=== PATIENT | female | born 1955 | race Caucasian/White ===

== ENCOUNTER 2019-02-14 15:36 | Emergency (ER) | payer SELFPAY ==
[~2019-02-14] VITALS: Ht 162.5 cm; Wt 48.1 kg
[~2019-02-14 15:36] MED LIST: AUGMENTIN 875-875 MG PO; BLEPH-10 15 ML15 ML OPH; CLOZAPINE25 MG PO; DIFLUCAN150 MG PO; EXCEDRIN IB200 MG PO; FLONASE ALLERG9.9 ML NAS; HYCODAN/HYDROMET5 ML PO; HYDROCODONE BIT1 T11 PO; IBU800 MG PO; KEFLEX500 MG PO; PREDNISONE50 MG PO; ZITHROMAX Z PA250 MG PO; ZYRTEC10 MG PO; indocin PO
[2019-02-14 17:12] LABS: BILIRUBIN NEGATIVE (NEGATIVE); BLOOD 1+ (NEGATIVE); CLARITY CLEAR (CLEAR); COLOR YELLOW (YELLOW); GLUCOSE NEGATIVE (NEGATIVE); KETONE NEGATIVE (NEGATIVE); LEUKO ESTERASE NEGATIVE (NEGATIVE); NITRITE NEGATIVE (NEGATIVE); PH 7.5 (5.0-9.0); UROBILINOGEN 0.2 E.U./dl (0.2-1.0)
[2019-02-14 17:33] LABS: EPITHELIAL CELLS 0-2
[2019-02-14 18:43] LABS: BASO # 0.1 10*3/uL (0.0-0.1); EOS # 0.2 10*3/uL (0.0-0.4); EOS % 1.8 % (1.0-4.0); HEMATOCRIT 41.4 % (37.0-47.0); HEMOGLOBIN 13.9 g/dl (12.0-16.0); LYMPH # 2.8 10*3/uL (1.3-4.4); LYMPH % 33.6 % (27.0-41.0); MEAN CORPUSCULAR HGB 33.3 pg (27.0-31.0); MEAN CORPUSCULAR HGB CONC 33.6 g/dl (33.0-37.0); MEAN PLATELET VOLUME 9.7 fl (9.6-12.3); MONO # 0.4 10*3/uL (0.1-1.0); NEUT # 4.9 10*3/uL (2.3-7.9); NEUT % 58.4 % (47.0-73.0); PLATELET COUNT AUTOMATED 290 10*3/uL (130-400); RED BLOOD COUNT 4.18 10*6/uL (4.10-5.10); RED CELL DISTRI WIDTH 12.1 % (0-14.5); WHITE BLOOD COUNT 8.4 10*3/uL (4.8-10.8)
[2019-02-14 19:00] LABS: ALBUMIN 4.1 gm/dl (3.1-4.5); ALKALINE PHOSPHATASE 79 U/L (45-117); BUN 9 mg/dl (7-24); CHLORIDE 104 mmol/L (98-107); CREATININE 0.71 mg/dL (0.55-1.02); POTASSIUM 3.8 mmol/L (3.5-5.1); SGOT/AST 30 IU/L (3-35); SGPT/ALT 52 U/L (12-78); SODIUM 139 mmol/L (136-145); TOTAL PROTEIN 7.2 gm/dL (6.4-8.2)
== END 2019-02-14 19:28 | disposition home or self-care (01) ==
LOC: ED 15:36
PROVIDERS: Physician Assistant
DX: R07.81 Pleurodynia (principal); R10.814 Left lower quadrant abdominal tenderness; R10.813 Right lower quadrant abdominal tenderness; Z91.018 Allergy to other foods

== ENCOUNTER 2023-08-26 15:01 | Emergency (ER) | payer OTHER ==
[~2023-08-26] VITALS: Ht 162.5 cm; Wt 47.2 kg
[2023-08-26] MEDS ORDERED: Metoclopramide Hydrochloride 10 MG/2 ML AMP IV ONE (15:45)
[2023-08-26] MEDS ORDERED: diphenhydrAMINE hydrochloride 50 MG/ML VIAL IV ONE (15:45)
[2023-08-26] MEDS ORDERED: SODIUM CHLORIDE 0.9% 1,000 ML IV ONE (15:45)
[2023-08-26] MEDS ORDERED: Ketorolac Tromethamine 30 MG/ML VIAL IV ONE (15:45)
[2023-08-26 16:15] LABS: BASO % 0.4 % (0.0-1.0); EOS # 0.1 10*3/uL (0.0-0.4); EOS % 0.7 % (1.0-4.0); HEMATOCRIT 36.8 % (37.0-47.0); LYMPH # 1.3 10*3/uL (1.3-4.4); LYMPH % 19.6 % (27.0-41.0); MEAN CELL VOLUME 96.6 fl (81.0-99.0); MEAN CORPUSCULAR HGB 34.4 pg (27.0-31.0); MEAN CORPUSCULAR HGB CONC 35.6 g/dl (33.0-37.0); MEAN PLATELET VOLUME 9.7 fl (9.6-12.3); MONO # 0.3 10*3/uL (0.1-1.0); MONO % 5.1 % (3.0-9.0); NEUT # 4.9 10*3/uL (2.3-7.9); NEUT % 73.9 % (47.0-73.0); PLATELET COUNT AUTOMATED 253 10*3/uL (130-400); RED BLOOD COUNT 3.81 10*6/uL (4.10-5.10); WHITE BLOOD COUNT 6.7 10*3/uL (4.8-10.8)
[2023-08-26 16:16] LABS: BILIRUBIN Negative (Negative); BLOOD 2+ (Negative); CLARITY Clear (Clear); COLOR Yellow (Yellow); GLUCOSE Negative (Negative); KETONE Negative (Negative); LEUKO ESTERASE Negative (Negative); NITRITE Negative (Negative); PH 6.5 (4.5-8.0); UROBILINOGEN 0.2 E.U./dl (0.0-1.0)
[2023-08-26 16:28] LABS: ALKALINE PHOSPHATASE 121 U/L (46-116); BUN 12 mg/dl (9-23); CHLORIDE 102 mmol/L (98-107); POTASSIUM 3.6 mmol/L (3.4-5.1); SGPT/ALT 27 U/L (5-49); TOTAL PROTEIN 6.6 gm/dL (6.0-8.0)
[2023-08-26 16:33] LABS: EPITHELIAL CELLS 0-2; RBC 21-30 rbc/hpf (0-2)
[2023-08-26] MEDS ORDERED: NEURONTIN300 MG PO (18:05)
[2023-08-26] MEDS ORDERED: Zestril,Prinivi40 MG PO (18:06)
[2023-08-26] MEDS ORDERED: AMLODIPINE BESYL5 MG PO (18:06)
[2023-08-26] MEDS ORDERED: CLORAZEPATE DIP PO (18:06)
[2023-08-26] MEDS ORDERED: IOHEXOL 300 MG/ML 100 ML VIAL IV ONE (19:10)
[2023-08-26] MEDS ORDERED: IOHEXOL 300 MG/ML 100 ML VIAL ONE (19:20)
[2023-08-26] MEDS ORDERED: ACETAMINOPHEN 325 MG TAB PO ONE (20:05)
[2023-08-26] MEDS ORDERED: Dexamethasone Sodium Phospha 20 MG/5 ML VIAL IV ONE (21:25)
== END 2023-08-26 21:35 | disposition home or self-care (01) ==
LOC: ED 15:01
PROVIDERS: Internal Medicine; Nurse Practitioner Family
DX: R51.9 Headache, unspecified (principal); I10 Essential (primary) hypertension; Z91.018 Allergy to other foods; Z79.899 Other long term (current) drug therapy; Z98.51 Tubal ligation status

== ENCOUNTER 2023-11-30 18:30 | Emergency (ER) | payer OTHER ==
[~2023-11-30] VITALS: Ht 162.5 cm; Wt 47.2 kg
[~2023-11-30 18:30] MED LIST changes: +AMLODIPINE BESYL5 MG PO; +CLORAZEPATE DIP PO; +NEURONTIN300 MG PO; +Zestril,Prinivi40 MG PO
[2023-11-30] MEDS ORDERED: Ondansetron Hydrochloride 4 MG TAB SL ONE (19:40)
[2023-11-30 19:50] LABS: BASO # 0.1 10*3/uL (0.0-0.1); BASO % 0.7 % (0.0-1.0); EOS # 0.1 10*3/uL (0.0-0.4); EOS % 1.5 % (1.0-4.0); HEMATOCRIT 37.6 % (37.0-47.0); LYMPH # 1.9 10*3/uL (1.3-4.4); LYMPH % 25.5 % (27.0-41.0); MEAN CELL VOLUME 97.2 fl (81.0-99.0); MEAN CORPUSCULAR HGB 33.3 pg (27.0-31.0); MEAN CORPUSCULAR HGB CONC 34.3 g/dl (33.0-37.0); MEAN PLATELET VOLUME 10.5 fl (9.6-12.3); MONO # 0.7 10*3/uL (0.1-1.0); MONO % 8.9 % (3.0-9.0); NEUT # 4.7 10*3/uL (2.3-7.9); NEUT % 63.3 % (47.0-73.0); PLATELET COUNT AUTOMATED 171 10*3/uL (130-400); RED BLOOD COUNT 3.87 10*6/uL (4.10-5.10); RED CELL DISTRI WIDTH 11.8 % (0-14.5); WHITE BLOOD COUNT 7.5 10*3/uL (4.8-10.8)
[2023-11-30 20:10] LABS: ALKALINE PHOSPHATASE 80 U/L (46-116); BUN 12 mg/dl (9-23); CHLORIDE 99 mmol/L (98-107); LIPASE 27 U/L (12-53); POTASSIUM 3.7 mmol/L (3.4-5.1); SGPT/ALT 23 U/L (5-49); TOTAL PROTEIN 6.7 gm/dL (6.0-8.0)
[2023-11-30] MEDS ORDERED: Ketorolac Tromethamine 60 MG/2 ML VIAL IM ONE (21:50)
== END 2023-11-30 22:39 | disposition home or self-care (01) ==
LOC: ED 18:30
PROVIDERS: Internal Medicine
DX: N28.1 Cyst of kidney, acquired (principal); E87.1 Hypo-osmolality and hyponatremia; F41.9 Anxiety disorder, unspecified; Z91.018 Allergy to other foods; Z90.89 Acquired absence of other organs